=== PATIENT | female | born 1960 | race Two or more races ===

== ENCOUNTER 2017-09-06 13:56 | Emergency (ER) | payer OTHER ==
[~2017-09-06] VITALS: Ht 154.9 cm; Wt 74.8 kg
[2017-09-06 14:10] VITALS: BP 150/96
--- NOTE | 2017-09-06 14:38 | Emergency Room Report ---
History of Present Illness General Chief Complaint: Pain Source: Patient Present Illness HPI 57 YO Female presents to the ED c/o 10/26 in severity tenderness to the posterior head and left side of the neck. pt. reports she was at work, sitting on a chair when she fell off of the chair and fell into the wall that was behind her. Denies numbness tingling or loss of sensation or gross motor movements of the extremities, incontinence of bowel or bladder. Denies CP, Palpitations, LOC, AMS, dizziness, Changes in Vision, weakness or a sudden severe headache. Allergies: Coded Allergies: No Known Allergies (Unverified , 05/29/14) Patient History Past Medical History: see triage record Past Surgical History: none Pertinent Family History: none Now: No Reviewed Nursing Documentation: PMH: Agreed; PSxH: Agreed Nursing Documentation-PMH Past Medical History: No Stated History Review of Systems All Other Systems: negative except mentioned in HPI Physical Exam Vital Signs Date Time Temp Pulse Resp B/P (MAP) Pulse Ox O2 Delivery O2 Flow Rate FiO2 09/06/17 14:09 99.0 78 22 154/95 94 Room Air 99.0 Sp02 EP Interpretation: reviewed, normal General Appearance: no apparent distress, alert, GCS 15, non-toxic Head: normocephalic, atraumatic - mild ttp in occipital area, no palpable hematoma, no open wounds. Eyes: bilateral eye normal inspection, bilateral eye PERRL, bilateral eye EOMI ENT: hearing grossly normal, normal voice Neck: full range of motion, no bony tend, tender lateral - left sided paracervical. Respiratory: chest non-tender, lungs clear, normal breath sounds, speaking full sentences Cardiovascular #1: regular rate, rhythm Musculoskeletal: back normal, gait/station normal, normal range of motion, tender - soft tissue tenderness to the left side of the neck and upper back, mildly in occipital area, no bony ttp. Neurologic: alert, oriented x3, responsive, motor strength/tone normal, sensory intact, speech normal, grossly normal Psychiatric: judgement/insight normal Skin: normal color, no rash, warm/dry, well hydrated Lymphatic: no adenopathy Medical Decision Making PA Attestation Dr. blankenship is my supervising Physician whom patient management has been discussed with. Diagnostic Impression: Primary Impression: Head ache Qualified Codes: R51 - Headache Additional Impressions: Head contusion Qualified Codes: S00.93XA - Contusion of unspecified part of head, initial encounter Neck strain Qualified Codes: S16.1XXA - Strain of muscle, fascia and tendon at neck level , initial encounter ER Course 57 YO Female presents to the ED c/o 10/26 in severity tenderness to the posterior head and left side of the neck. pt. reports she was at work, sitting on a chair when she fell off of the chair and fell into the wall that was behind her. Denies Nausea or vomiting. Denies numbness tingling or loss of sensation or gross motor movements of the extremities, incontinence of bowel or bladder. Denies CP, Palpitations, LOC, AMS, dizziness, Changes in Vision, weakness or a sudden severe headache. Ddx considered but are not limited to Fracture, dislocation, contusion, concussion Sprain/Strain/Spasm, concussion, Intracranial bleed or hematoma, spinal chord injury just to name a few. Vital signs: are WNL, pt. is afebrile H&PE are most consistent with contusion, no evidence of focal neurological deficit, no loss of consciousness. pt. has FROM, no midline bony ttp. ORDERS: none required at this time. PE and HPI do not indicate CT at this time. ED INTERVENTIONS: -Tylenol PO -D/w Pt.reasoning for not doing Head CT, also discussed red flag symptoms to keep an eye out for that would indicate prompt return to the ED. - Patient verbalizes understanding and agreement with proposed treatment plan. DISCHARGE: At this time pt. is stable for d/c to home. Will provide printed patient care instructions, and any necessary prescriptions. Care plan and follow up instructions have been discussed with the patient prior to discharge. Last Vital Signs Date Time Temp Pulse Resp B/P (MAP) Pulse Ox O2 Delivery O2 Flow Rate FiO2 09/06/17 14:09 99.0 78 22 154/95 94 Room Air 99.0 Disposition: HOME, SELF-CARE Condition: Stable Scripts Acetaminophen* (TYLENOL EXTRA STRENGTH*) 500 Mg Tablet 500 MG ORAL Q6H, #20 TAB 0 Refills Prov: Julissa Rothman 09/06/17 Methocarbamol* (ROBAXIN-750*) 750 Mg Tablet 750 MG PO TID, #21 TAB 0 Refills Prov: Julissa Rothman 09/06/17 Patient Instructions: Contusion, [id number], Muscle Strain, [id number] Additional Instructions: Take medications as directed. Follow up with a Primary Care Provider in 3-5 days, even if your symptoms have resolved. --Please review list of primary care clinics, if you do not already have a primary care provider Return sooner to ED if new symptoms occur, or current symptoms become worse. Do not drink alcohol, drive, or operate heavy machinery while taking Robaxin as this may cause drowsiness. - Please note that this Emergency Department Report was dictated using [employer] software, occasionally this can lead to erroneous entry secondary to interpretation by the dictation equipment. Julissa Rothman Sep 06, 2017 14:38
[2017-09-06] MEDS ORDERED: ROBAXIN-750750 MG PO (14:39)
[2017-09-06] MEDS ORDERED: TYLENOL EXTRA500 MG ORAL (14:39)
[2017-09-06 15:15] VITALS: BP 150/96
== END 2017-09-06 15:15 | disposition home or self-care (01) ==
LOC: EMR 14:35
DX: R51 Headache (principal); S00.93XA Contusion of unspecified part of head, initial encounter; S16.1XXA Strain of muscle, fascia and tendon at neck level, initial encounter; W07.XXXA Fall from chair, initial encounter; Y92.89 Other specified places as the place of occurrence of the external cause; Y99.0 Civilian activity done for income or pay
CPT/HCPCS: 99284